=== PATIENT | male | born 1995 | race Caucasian/White ===

== ENCOUNTER → 2017-11-13 | Outpatient (CLI) | payer BC ==
--- NOTE | 2017-11-13 08:10 | US ---
EXAMINATION TYPE: US kidneys/renal and bladder DATE OF EXAM: 11/13/2017 COMPARISON: CT abdomen and pelvis October 26, 2017 and older study April 29, 2011 CLINICAL HISTORY: N28.1 Cyst of kidney, acquired. CT showed right kidney lesion EXAM MEASUREMENTS: Right Kidney: 11.1 x 4.1 x 4.3 cm Left Kidney: 10.1 x 4.2 x 4.3 cm Right Kidney: Anterior lower pole cortical lesion with vascular flow= 3.0 x 2.6 x 2.9 cm Left Kidney: No hydronephrosis or masses seen Bladder: wnl Bilateral Jets seen There is no evidence for hydronephrosis at this point in time. No nephrolithiasis is seen. Correspon ding to CT in the right kidney laterally mid pole level there is partially exophytic ball-shaped hypo echoic lesion that shows suspicious vascularity on ultrasound image 21. The urinary bladder is anecho ic. Bilateral ureteral jets are seen. IMPRESSION: There is 3.0 cm complex cystic lesion with vascularity, Bosniak type III or IV lesion. Surgical refer ral advised. Cannot exclude cystic neoplasm.
== END | disposition home or self-care (01) ==
LOC: RADUSWWP 07:20
PROVIDERS: ATTEND Family Medicine
DX: N28.1 Cyst of kidney, acquired (principal); N28.89 Other specified disorders of kidney and ureter
CPT/HCPCS: 76770

== ENCOUNTER → 2018-07-02 | Outpatient (CLI) | payer BC ==
[2018-07-02 11:51] LABS: Blood Urea Nitrogen 15 mg/dL (9-20)
--- NOTE | 2018-07-02 13:25 | XR ---
EXAMINATION TYPE: XR chest 2V DATE OF EXAM: 07/02/2018 COMPARISON: 11/15/2003 INDICATION: Kidney cancer TECHNIQUE: Frontal and lateral views of the chest are obtained. FINDINGS: The heart size is normal. The pulmonary vasculature is normal. The lungs are clear. No suspicious lung masses are evident. No abnormal osseous lesions. IMPRESSION: 1. No acute pulmonary process. 2. No suspicious changes for metastatic renal cancer.
--- NOTE | 2018-07-02 13:30 | CT ---
EXAMINATION TYPE: CT abdomen wo/w con DATE OF EXAM: 07/02/2018 COMPARISON: Prior CT 10/26/2017 HISTORY: Renal CA CT DLP: 496.2 mGycm Automated exposure control for dose reduction was used. TECHNIQUE: Helical acquisition of images was performed from the lung bases through the top of iliac crest to include entire abdomen. CONTRAST: Performed with Oral Contrast and without and with IV Contrast, patient injected with 100 mL of Isovue 300. FINDINGS: LUNG BASES: No significant abnormality is appreciated. LIVER/GB: No significant abnormality is appreciated. PANCREAS: No significant abnormality is seen. SPLEEN: No significant abnormality is seen. ADRENALS: No significant abnormality is seen. KIDNEYS: Interval surgery the lateral aspect of the right kidney, the previously identified mass is n o longer evident, some increased attenuation along the lateral renal cortex is likely postsurgical. T here is cortical irregularity but no significant residual abnormal enhancement to suggest residual tu mor along the right kidney.. BOWEL: No significant abnormality is seen. LYMPH NODES: No significant abnormality is appreciated. OSSEOUS STRUCTURES: No significant abnormality is seen. FREE AIR: No Free Air visible ASCITES: None visible. RETROPERITONEAL ADENOPATHY: No Retroperitoneal Adenopathy visible. IMPRESSION: POSTOP CHANGES RIGHT KIDNEY.
== END | disposition home or self-care (01) ==
LOC: RADCTMAIN 10:55
PROVIDERS: ATTEND Surgery
DX: C64.9 Malignant neoplasm of unspecified kidney, except renal pelvis (principal); Z98.890 Other specified postprocedural states
CPT/HCPCS: 82565; 84520; 71046; 74170; 36415; Q9967

== ENCOUNTER 2018-11-07 12:16 | Emergency (ER) | payer BC ==
[2018-11-07 12:23] VITALS: TEMP 98.1
[2018-11-07] MEDS ORDERED: FAMOTIDINE 20 MG/2 ML VIAL IV STA (12:28)
[2018-11-07] MEDS ORDERED: diphenhydrAMINE 50 MG/ML 1 ML VIAL IVP STA (12:28)
[2018-11-07] MEDS ORDERED: methylPREDNISolone SOD SUCCI 125 MG/2 ML VIAL IV STA (12:28)
--- NOTE | 2018-11-07 13:28 | ED ---
Allergic Reaction HPI - General Chief complaint: Allergic Reaction Stated complaint: med reaction-facial & throat swelling and hives Time Seen by Provider: 11/07/18 12:25 Source: patient, RN notes reviewed Mode of arrival: ambulatory Limitations: no limitations - History of Present Illness Initial Comments: This is a 23-year-old male with a history is known for penicillin ALLERGIES who states he started taking cephalexin earlier today about half hour prior to arrival he started developing a rash itchiness tightness in his throat similar when he had the past with penicillin he's never had a problem cephalexin in the past he denies any nausea vomiting he does not feel well. MD Complaint: allergic reaction - Related Data Home Medications Medication Instructions Recorded Confirmed Dm/Acetaminophen/Doxylamine [Vicks 30 ml PO Q4H PRN 11/07/18 11/07/18 Nyquil Cold-Flu Liquid] Phenylephrine/Dm/Acetaminop/GG 30 ml PO Q4H PRN 11/07/18 11/07/18 [Vicks Dayquil Severe Cold-Flu] Previous Rx's Medication Instructions Recorded Famotidine [Pepcid] 20 mg PO BID #10 tablet 11/07/18 predniSONE 20 mg PO BID #10 tab 11/07/18 Allergies Allergy/AdvReac Type Severity Reaction Status Date / Time cephalexin [From Keflex] Allergy Rash/Hives Verified 11/07/18 12:29 Penicillins Allergy Rash/Hives Verified 11/07/18 12:29 Review of Systems ROS Statement: Those systems with pertinent positive or pertinent negative responses have been documented in the HPI. ROS Other: All systems not noted in ROS Statement are negative. Past Medical History Past Medical History: Cancer Additional Past Medical History / Comment(s): Kidney CA right side History of Any Multi-Drug Resistant Organisms: None Reported Past Surgical History: Tonsillectomy Past Anesthesia/Blood Transfusion Reactions: No Reported Reaction Past Psychological History: No Psychological Hx Reported Smoking Status: Never smoker Past Alcohol Use History: Rare Past Drug Use History: None Reported General Exam - General Exam Comments Initial Comments: This a well-developed well-nourished awake alert oriented times 3 male Limitations: no limitations General appearance: alert, anxious Head exam: Present: atraumatic, normocephalic, normal inspection Eye exam: Present: normal appearance, PERRL, EOMI. Absent: scleral icterus, conjunctival injection, periorbital swelling ENT exam: Present: other (Mild posterior pharyngeal hyperemia) Neck exam: Present: normal inspection, full ROM, other (No stridor JVD or bruits). Absent: tenderness, meningismus, lymphadenopathy Respiratory exam: Present: normal lung sounds bilaterally. Absent: respiratory distress, wheezes, rales, rhonchi, stridor Cardiovascular Exam: Present: normal rhythm, tachycardia, normal heart sounds. Absent: systolic murmur, diastolic murmur, rubs, gallop, clicks GI/Abdominal exam: Present: soft, normal bowel sounds. Absent: distended, tenderness, guarding, rebound, rigid Extremities exam: Present: normal inspection, full ROM, normal capillary refill. Absent: tenderness, pedal edema, joint swelling, calf tenderness Back exam: Present: normal inspection Neurological exam: Present: alert, oriented X3, CN II-XII intact Psychiatric exam: Present: normal affect, normal mood Skin exam: Present: warm, dry, intact, normal color. Absent: rash Course Vital Signs 11/07/18 12:20 Temperature 98.1 F Pulse Rate 122 H Respiratory 18 Rate Blood Pressure 138/77 O2 Sat by Pulse 96 Oximetry - Reevaluation(s) Reevaluation #1: 11/07/18 13:28 Reevaluation patient finds that he is feeling much improved at this time. Medical Decision Making - Medical Decision Making The patient is feeling improved he does present with symptoms consistent with ALLERGIC reaction to cephalexin he'll be discharged home on a short course of steroids as well as instructions for [id number] H1 and H2 blockers. Disposition Clinical Impression: Allergic reaction, Adverse reaction to drug Disposition: HOME SELF-CARE Condition: Good Instructions (If sedation given, give patient instructions): General Allergic Reaction (ED) Additional Instructions: Avoid the use of cephalexin in addition to the urine noted ALLERGY to penicillin. Also [id number]-[id number] Benadryl 25 mg every 6 hours as needed, cool compresses to any affected area, avoid heat/hot environments for the next 3-5 days. Prescriptions: Famotidine [Pepcid] 20 mg PO BID #10 tablet predniSONE 20 mg PO BID #10 tab Is patient prescribed a controlled substance at d/c from ED?: No Referrals: Kenny Winn MD [Primary Care Provider] - 1-2 days
--- NOTE | 2018-11-07 13:35 | ED ---
Medical Decision Making - Medical Decision Making The patient will be placed on azithromycin for his sinus infection who is being treated for Disposition Clinical Impression: Allergic reaction, Adverse reaction to drug Disposition: HOME SELF-CARE Condition: Good Instructions (If sedation given, give patient instructions): General Allergic Reaction (ED) Additional Instructions: Avoid the use of cephalexin in addition to the urine noted ALLERGY to penicillin. Also xrsb-dni-yixysbo Benadryl 25 mg every 6 hours as needed, cool compresses to any affected area, avoid heat/hot environments for the next 3-5 days. Prescriptions: Famotidine [Pepcid] 20 mg PO BID #10 tablet predniSONE 20 mg PO BID #10 tab Azithromycin [Zithromax Z-pack] 250 mg PO DIRECTED #6 tab Is patient prescribed a controlled substance at d/c from ED?: No Referrals: Kenny Winn MD [Primary Care Provider] - 1-2 days
[2018-11-07 13:49] VITALS: BP 131/71; PULSE 80; RESP 16
== END 2018-11-07 13:51 | disposition home or self-care (01) ==
LOC: EC 12:16
DX: J39.2 Other diseases of pharynx (principal); T36.1X5A Adverse effect of cephalosporins and other beta-lactam antibiotics, initial encounter; J32.9 Chronic sinusitis, unspecified; R00.0 Tachycardia, unspecified; Z88.0 Allergy status to penicillin; Z88.1 Allergy status to other antibiotic agents; Z85.528 Personal history of other malignant neoplasm of kidney
CPT/HCPCS: 99282; 96374; 96375 ×2; J1200; J2930

== ENCOUNTER → 2019-07-19 | Outpatient (CLI) | payer BC ==
[2019-07-19 10:33] LABS: African American GFR (CKD) >90 (>60 ml/min/1.73 sqM); Blood Urea Nitrogen 18 mg/dL (9-20); Non-African American GFR(CKD) >90 (>60 ml/min/1.73 sqM)
--- NOTE | 2019-07-19 11:51 | CT ---
EXAMINATION TYPE: CT abdomen wo/w con DATE OF EXAM: 07/19/2019 COMPARISON: CT abdomen July 02, 2018 and older studies HISTORY: Benign neoplasm of right kidney CT DLP: 567.5 mGycm, Automated Exposure Control for Dose Reduction was Utilized. CONTRAST: CT scan of the abdomen is performed with oral and without and with IV Contrast, patient injected with 100 mL of Isovue 300. FINDINGS: LUNG BASES: No significant abnormality is appreciated. LIVER/GB: No significant abnormality is appreciated. PANCREAS: No significant abnormality is seen. SPLEEN: No significant abnormality is seen. ADRENALS: No significant abnormality is seen. KIDNEYS: Gross persistent cortical defect with adjacent curvilinear density consistent with posttreat ment change through the right kidney laterally midpole level from prior partial excision of complex c ystic lesion. There is symmetric corticomedullary uptake and excretion from both kidneys without new concerning solid or cystic renal mass or hydronephrosis seen bilaterally. BOWEL: No significant abnormality is seen. LYMPH NODES: No greater than 1cm abdominal lymph nodes are appreciated. OSSEOUS STRUCTURES: No significant abnormality is seen. OTHER: No significant additional abnormality is seen. IMPRESSION: Stable postsurgical changes right kidney. No new suspicious mass. No significant change f rom most recent CT.
== END | disposition home or self-care (01) ==
LOC: RADCTMAIN 09:56
PROVIDERS: ATTEND Surgery
DX: C64.1 Malignant neoplasm of right kidney, except renal pelvis (principal); Z98.890 Other specified postprocedural states
CPT/HCPCS: 74170; 82565; 84520

== ENCOUNTER 2019-09-26 | Observation (INO) | payer BC | END 2019-09-28 13:30 | disposition home or self-care (01) | PROVIDERS: ADMIT Hospitalist | CPT/HCPCS: 96361 ×2; 96376; 96372; 96374; 99285; 36415; 93005; 80053 ×2; 83690; 85025; 81003; 87324; 87045; 87046; 74018; G0378 ×3; J0500; J2405 ==

== ENCOUNTER → 2020-09-15 | Outpatient (CLI) | payer BC ==
[2020-09-15 09:32] LABS: Basophils # (A) 0.1 k/uL (0-0.2); Basophils % (A) 1 %; Eosinophils # (A) 0.4 k/uL (0-0.7); Eosinophils % (A) 5 %; HCT 49.9 % (39.0-53.0); Lymphocytes # (A) 1.9 k/uL (1.0-4.8); Lymphocytes % (A) 28 %; MCH 30.3 pg (25.0-35.0); MCV 89.2 fL (80.0-100.0); Mean Platelet Volume 7.4; Monocytes # (A) 0.4 k/uL (0-1.0); Monocytes % (A) 6 %; Neutrophils # (A) 3.9 k/uL (1.3-7.7); Neutrophils % (A) 58 %; Platelet Count 204 k/uL (150-450); RBC 5.59 m/uL (4.30-5.90); RDW 12.9 % (11.5-15.5); WBC 6.8 k/uL (3.8-10.6)
[2020-09-15 11:03] LABS: Erythrocyte Sedimentation Rate 1 mm/hr (0-15)
[2020-09-15 15:30] LABS: Hemoglobin A1C 4.8 % (4.0-6.0)
[2020-09-15 17:44] LABS: % Iron Saturation 44.16 (15.00-50.00); African American GFR (CKD) 87.9 (60.0-200.0); Albumin 4.4 g/dL (3.80-4.90); Albumin/Globulin Ratio 1.63 (1.60-3.17); Anion Gap 6.3 mmol/L (4.00-12.00); BUN/Creat Ratio 10.77 Ratio (12.00-20.00); Calcium 10.4 mg/dL (8.7-10.3); Carbon Dioxide 28.7 mmol/L (21.6-31.8); Chol/HDL Ratio 3.95; Globulin 2.7 g/dL (1.6-3.3); LDL Cholesterol,Calculated 108.2 mg/dL (0.0-131.0); Non-African American GFR(CKD) 75.8 (60.0-200.0); Potassium 3.9 mmol/L (3.5-5.5); Total Bilirubin 0.8 mg/dL (0.3-1.2); Total Protein 7.1 g/dL (6.2-8.2); VLDL Calculation 18.8 mg/dL (5.00-40.00)
[2020-09-15 17:53] LABS: Ferritin 91.2 ng/mL (22.0-322.0)
== END | disposition home or self-care (01) ==
LOC: LABMAIN 08:47
PROVIDERS: ATTEND Family Medicine
DX: Z00.00 Encounter for general adult medical examination without abnormal findings (principal); R53.83 Other fatigue
CPT/HCPCS: 36415; 80053; 80061; 82024; 82533; 82728; 83036; 83540; 83550; 84443; 85025; 85652

== ENCOUNTER → 2020-11-20 | Outpatient (CLI) | payer BC | LOC: CPPFTMAIN 13:12 | PROVIDERS: ATTEND Family Medicine | DX: J45.909 Unspecified asthma, uncomplicated (principal) | CPT/HCPCS: 94060; 94726; 94729 ==

== ENCOUNTER → 2021-03-29 | Outpatient (CLI) | payer BC ==
[2021-03-29 16:52] LABS: African American GFR (CKD) >90 (>60 ml/min/1.73 sqM); Blood Urea Nitrogen 24 mg/dL (9-20); Non-African American GFR(CKD) 82 (>60 ml/min/1.73 sqM)
--- NOTE | 2021-03-31 07:54 | CT ---
EXAMINATION TYPE: CT abdomen wo/w con DATE OF EXAM: 03/29/2021 COMPARISON: CT abdomen July 19, 2019 and older studies. HISTORY: f/u renal ca CT DLP: 1074 mGycm, Automated Exposure Control for Dose Reduction was Utilized. CONTRAST: CT scan of the abdomen is performed with oral and without and with IV Contrast, patient injected with 100 mL of Isovue 300. FINDINGS: LUNG BASES: No significant abnormality is appreciated. LIVER/GB: No significant abnormality is appreciated. PANCREAS: No significant abnormality is seen. SPLEEN: No significant abnormality is seen. ADRENALS: No significant abnormality is seen. KIDNEYS: Persistent cortical defect with adjacent curvilinear density consistent with posttreatment c hange in the right kidney laterally midpole level from prior partial excision of complex cystic lesio n. There is symmetric corticomedullary uptake and excretion from both kidneys without new concerning solid or cystic renal mass or hydronephrosis seen bilaterally. BOWEL: Normal-appearing appendix. Oral contrast does not reach colonic level. Low positioning of the splenic flexure similar to prior. LYMPH NODES: No new greater than 1cm abdominal lymph nodes are appreciated. OSSEOUS STRUCTURES: Mild to moderate Disc space narrowing lumbosacral junction. OTHER: No significant additional abnormality is seen. IMPRESSION: Stable postsurgical changes right kidney. No new suspicious mass. No significant change f rom most recent CT.
== END | disposition home or self-care (01) ==
LOC: RADCTMAIN 16:10
PROVIDERS: ATTEND Family Medicine
DX: Z08 Encounter for follow-up examination after completed treatment for malignant neoplasm (principal); Z85.528 Personal history of other malignant neoplasm of kidney
CPT/HCPCS: 82565; 84520; 74170; 36415; Q9967

== ENCOUNTER 2021-05-04 11:30 | Emergency (ER) | payer BC ==
[2021-05-04 11:47] VITALS: TEMP 97.7
--- NOTE | 2021-05-04 11:51 | ED ---
General Adult HPI - General Chief complaint: Abdominal Pain Stated complaint: ABD pain, possible appendicitis Time Seen by Provider: 05/04/21 11:50 Source: patient Mode of arrival: ambulatory Limitations: no limitations - History of Present Illness Initial comments: Patient presents to the ED with his for evaluation. Patient states that he has had constant and worsening right lower quadrant abdominal pain for the past 5 days or so. Patient states that his pain is worse with movement and better with rest. Patient also admits to having nausea and intermittent diarrhea. Patient states that he has a history of irritable bowel syndrome. Patient states that he was seen at the [facility] today, and he was instructed to come to the ED out of concern for possible appendicitis. Patient denies trauma or injury, fever or chills, headache, focal neuro deficit, chest pain or pressure, cough or cold symptoms, dizziness, vomiting, constipation, bloody or melanotic stool, back or flank pain, dysuria/hematuria/urinary frequency/urinary symptoms, or any other symptoms or complaints. Patient states that his pain is currently 7/10 in severity. Patient states that he has had prior right kidney surgery secondary to kidney cancer. - Related Data Home Medications Medication Instructions Recorded Confirmed Citalopram Hydrobromide [CeleXA] 10 mg PO HS 09/26/19 09/26/19 Previous Rx's Medication Instructions Recorded Dicyclomine [Bentyl] 20 mg PO QID #12 tablet 09/26/19 Ondansetron [Zofran ODT] 4 mg PO Q8HR PRN #10 tab 09/26/19 Ciprofloxacin HCl [Cipro] 500 mg PO BID #4 tab 09/28/19 metroNIDAZOLE [Flagyl] 500 mg PO TID #6 tab 09/28/19 Allergies Allergy/AdvReac Type Severity Reaction Status Date / Time cephalexin [From Keflex] Allergy Rash/Hives Verified 05/04/21 11:47 Penicillins Allergy Rash/Hives Verified 05/04/21 11:47 Review of Systems ROS Statement: Those systems with pertinent positive or pertinent negative responses have been documented in the HPI. ROS Other: All systems not noted in ROS Statement are negative. Past Medical History Past Medical History: Cancer Additional Past Medical History / Comment(s): Kidney CA right side History of Any Multi-Drug Resistant Organisms: None Reported Past Surgical History: Tonsillectomy Additional Past Surgical History / Comment(s): right kidney removed. Past Anesthesia/Blood Transfusion Reactions: No Reported Reaction Past Psychological History: No Psychological Hx Reported, Anxiety Smoking Status: Never smoker Past Alcohol Use History: Rare Past Drug Use History: None Reported - Past Family History Father Family Medical History: No Reported History Mother Family Medical History: No Reported History General Exam Limitations: no limitations General appearance: alert, in no apparent distress Head exam: Present: atraumatic, normocephalic Eye exam: Present: normal appearance, EOMI ENT exam: Present: mucous membranes moist Neck exam: Present: other (Trachea is in midline) Respiratory exam: Present: normal lung sounds bilaterally. Absent: respiratory distress, wheezes, rales, rhonchi, stridor Cardiovascular Exam: Present: regular rate, normal rhythm, normal heart sounds, other (Normal radial pulses bilaterally) GI/Abdominal exam: Present: soft, normal bowel sounds, other (Moderate right l ower quadrant abdominal tenderness). Absent: distended, guarding, rebound Extremities exam: Absent: tenderness, pedal edema, calf tenderness Back exam: Absent: CVA tenderness (R), CVA tenderness (L) Neurological exam: Present: alert, oriented X3. Absent: motor sensory deficit Psychiatric exam: Present: normal affect, normal mood Skin exam: Present: warm, dry, intact, normal color Course Vital Signs 05/04/21 05/04/21 11:45 12:43 Temperature 97.7 F Pulse Rate 85 89 Respiratory 18 16 Rate Blood Pressure 142/83 143/64 O2 Sat by Pulse 97 99 Oximetry - Reevaluation(s) Reevaluation #1: 05/04/21 15:02 Patient states that his pain has improved with ED treatment, and he denies development of any new symptoms while in the ED. Patient's abdomen remains soft and without any surgical signs on examination. Patient and are aware the patient's test results, and patient feels comfortable going home with his at this time. Patient was counseled about abdominal pain, and he was clearly explained return and follow-up instructions. Patient was instructed to have a low threshold for return to the emergency department should his symptoms worsen. Patient was also instructed to follow up closely with his primary care provider. Patient feels comfortable with this plan. Medical Decision Making - Medical Decision Making Patient has a soft and nonsurgical abdominal examination. Patient is afebrile and without leukocytosis. Patient's labs are fairly unremarkable. Patient's CT abdomen/pelvis with IV contrast was also unremarkable. I do not suspect an emergent medical or surgical condition at this time. Will discharge patient home with his at this time. - Lab Data Result diagrams: 05/04/21 12:07 05/04/21 12:07 Lab Results 05/04/21 05/04/21 05/04/21 Range/Units 12:07 12:07 12:07 WBC 8.5 (3.8-10.6) k/uL RBC 5.76 (4.30-5.90) m/uL Hgb 17.8 H (13.0-17.5) gm/dL Hct 51.9 (39.0-53.0) % MCV 90.0 (80.0-100.0) fL MCH 30.8 (25.0-35.0) pg MCHC 34.3 (31.0-37.0) g/dL RDW 12.9 (11.5-15.5) % Plt Count 213 (150-450) k/uL MPV 8.0 Neutrophils % 62 % Lymphocytes % 23 % Monocytes % 6 % Eosinophils % 5 % Basophils % 1 % Neutrophils # 5.3 (1.3-7.7) k/uL Lymphocytes # 2.0 (1.0-4.8) k/uL Monocytes # 0.5 (0-1.0) k/uL Eosinophils # 0.5 (0-0.7) k/uL Basophils # 0.1 (0-0.2) k/uL Sodium 140 (137-145) mmol/L Potassium 4.1 (3.5-5.1) mmol/L Chloride 106 (98-107) mmol/L Carbon Dioxide 25 (22-30) mmol/L Anion Gap 9 mmol/L BUN 14 (9-20) mg/dL Creatinine 1.07 (0.66-1.25) mg/dL Est GFR (CKD-EPI)AfAm >90 (>60 ml/min/1.73 sqM) Est GFR (CKD-EPI)NonAf >90 (>60 ml/min/1.73 sqM) Glucose 102 H (74-99) mg/dL Plasma Lactic Acid Imer (0.7-2.0) mmol/L Calcium 10.2 (8.4-10.2) mg/dL Total Bilirubin 0.6 (0.2-1.3) mg/dL AST 24 (17-59) U/L ALT 28 (4-49) U/L Alkaline Phosphatase 79 (38-126) U/L Total Protein 7.2 (6.3-8.2) g/dL Albumin 4.6 (3.5-5.0) g/dL Lipase 100 (23-300) U/L Urine Color Yellow Urine Appearance Clear (Clear) Urine pH 6.0 (5.0-8.0) Ur Specific [place] 1.018 (1.001-1.035) Urine Protein Negative (Negative) Urine Glucose (UA) Negative (Negative) Urine Ketones Negative (Negative) Urine Blood Negative (Negative) Urine Nitrite Negative (Negative) Urine Bilirubin Negative (Negative) Urine Urobilinogen <2.0 (<2.0) mg/dL Ur Leukocyte Esterase Negative (Negative) 05/04/21 Range/Units 12:07 WBC (3.8-10.6) k/uL RBC (4.30-5.90) m/uL Hgb (13.0-17.5) gm/dL Hct (39.0-53.0) % MCV (80.0-100.0) fL MCH (25.0-35.0) pg MCHC (31.0-37.0) g/dL RDW (11.5-15.5) % Plt Count (150-450) k/uL MPV Neutrophils % % Lymphocytes % % Monocytes % % Eosinophils % % Basophils % % Neutrophils # (1.3-7.7) k/uL Lymphocytes # (1.0-4.8) k/uL Monocytes # (0-1.0) k/uL Eosinophils # (0-0.7) k/uL Basophils # (0-0.2) k/uL Sodium (137-145) mmol/L Potassium (3.5-5.1) mmol/L Chloride (98-107) mmol/L Carbon Dioxide (22-30) mmol/L Anion Gap mmol/L BUN (9-20) mg/dL Creatinine (0.66-1.25) mg/dL Est GFR (CKD-EPI)AfAm (>60 ml/min/1.73 sqM) Est GFR (CKD-EPI)NonAf (>60 ml/min/1.73 sqM) Glucose (74-99) mg/dL Plasma Lactic Acid Imer 1.1 (0.7-2.0) mmol/L Calcium (8.4-10.2) mg/dL Total Bilirubin (0.2-1.3) mg/dL AST (17-59) U/L ALT (4-49) U/L Alkaline Phosphatase (38-126) U/L Total Protein (6.3-8.2) g/dL Albumin (3.5-5.0) g/dL Lipase (23-300) U/L Urine Color Urine Appearance (Clear) Urine pH (5.0-8.0) Ur Specific [place] (1.001-1.035) Urine Protein (Negative) Urine Glucose (UA) (Negative) Urine Ketones (Negative) Urine Blood (Negative) Urine Nitrite (Negative) Urine Bilirubin (Negative) Urine Urobilinogen (<2.0) mg/dL Ur Leukocyte Esterase (Negative) - Radiology Data Radiology results: report reviewed (CT abdomen/pelvis with IV contrast: No significant abnormality seen) Disposition Clinical Impression: Abdominal pain Disposition: HOME SELF-CARE Condition: Stable Instructions (If sedation given, give patient instructions): Abdominal Pain (ED) Additional Instructions: Return to the ER immediately should you develop new or worsening pain, a fever, vomiting, shortness of breath, feeling dizzy or faint, or new or worsening symptoms. Follow up closely with your primary care provider. Is patient prescribed a controlled substance at d/c from ED?: No Referrals: Kenny iWnn MD [Primary Care Provider] - 1-2 days Time of Disposition: 15:05
[2021-05-04] MEDS ORDERED: SODIUM CHLORIDE 0.9% 1,000 ML IV STA (11:58)
[2021-05-04] MEDS ORDERED: MORPHINE SULFATE 4 MG/ML SYRINGE IV STA (11:58)
[2021-05-04] MEDS ORDERED: ONDANSETRON 4 MG/2 ML VIAL IVP STA (11:58)
[2021-05-04 12:16] LABS: Basophils # (A) 0.1 k/uL (0-0.2); Basophils % (A) 1 %; Eosinophils # (A) 0.5 k/uL (0-0.7); Eosinophils % (A) 5 %; HCT 51.9 % (39.0-53.0); HGB 17.8 gm/dL (13.0-17.5); Lymphocytes % (A) 23 %; MCH 30.8 pg (25.0-35.0); MCHC 34.3 g/dL (31.0-37.0); Monocytes # (A) 0.5 k/uL (0-1.0); Monocytes % (A) 6 %; Neutrophils # (A) 5.3 k/uL (1.3-7.7); Neutrophils % (A) 62 %; Platelet Count 213 k/uL (150-450); RBC 5.76 m/uL (4.30-5.90); RDW 12.9 % (11.5-15.5); WBC 8.5 k/uL (3.8-10.6)
[2021-05-04 12:26] LABS: ALT 28 U/L (4-49); AST 24 U/L (17-59); African American GFR (CKD) >90 (>60 ml/min/1.73 sqM); Albumin 4.6 g/dL (3.5-5.0); Alkaline Phosphatase 79 U/L (38-126); Anion Gap 9 mmol/L; Blood Urea Nitrogen 14 mg/dL (9-20); Calcium 10.2 mg/dL (8.4-10.2); Carbon Dioxide 25 mmol/L (22-30); Chloride 106 mmol/L (98-107); Glucose 102 mg/dL (74-99); Lipase 100 U/L (23-300); Non-African American GFR(CKD) >90 (>60 ml/min/1.73 sqM); Potassium 4.1 mmol/L (3.5-5.1); Sodium 140 mmol/L (137-145); Total Bilirubin 0.6 mg/dL (0.2-1.3); Total Protein 7.2 g/dL (6.3-8.2)
[2021-05-04 12:27] LABS: Appearance,Urine Clear (Clear); Bilirubin,Urine Negative (Negative); Blood,Urine Negative (Negative); Color,Urine Yellow; Glucose,Urine (UA) Negative (Negative); Ketones,Urine Negative (Negative); Leukocyte Esterase,Urine Negative (Negative); Nitrite,Urine Negative (Negative); Protein,Urine Negative (Negative); Specific Gravity,Urine 1.018 (1.001-1.035); Urobilinogen,Urine <2.0 mg/dL (<2.0)
--- NOTE | 2021-05-04 13:31 | CT ---
EXAMINATION TYPE: CT abdomen pelvis w con DATE OF EXAM: 05/04/2021 COMPARISON: 03/29/2021 HISTORY: Right lower quadrant pain CT DLP: 1074 mGycm Automated exposure control for dose reduction was used. TECHNIQUE: Helical acquisition of images was performed from the lung bases through the pelvis. CONTRAST: 100 cc of nonionic IV contrast.. FINDINGS: The lung bases are clear. Gallbladder is normal and there is no gallstones, gallbladder distention, wall thickening or perichol ecystic fluid. There is no biliary ductal dilatation. There is no focal mass or organomegaly involving the liver, pancreas, spleen or adrenal glands. There is a small postsurgical defect in the right renal cortex which was seen previously otherwise th ere is no renal mass or hydronephrosis. There is no retroperitoneal adenopathy or hemorrhage in the caliber of the abdominal aorta is normal. The bowel loops are normal in caliber and there is no evidence of obstruction. There is no free intra peritoneal air or fluid. No inflammatory changes are identified in the mesentery. There is no pelvic mass, free fluid, abscess or adenopathy. The osseous structures and soft tissues are unremarkable. IMPRESSION: No significant abnormality seen.
[2021-05-04 15:17] VITALS: BP 134/83; PULSE 86; RESP 18
== END 2021-05-04 15:17 | disposition home or self-care (01) ==
LOC: EC 11:30
DX: R10.31 Right lower quadrant pain (principal); Z79.899 Other long term (current) drug therapy; Z88.0 Allergy status to penicillin; Z88.1 Allergy status to other antibiotic agents; Z85.528 Personal history of other malignant neoplasm of kidney
CPT/HCPCS: 36415; 80053; 83605; 83690; 85025; 81003; 74177; 99284; 96374; 96375; 96361; J2270; J2405; Q9967

== ENCOUNTER 2022-02-11 20:08 | Emergency (ER) | payer BC, OTHER ==
[2022-02-11 20:30] VITALS: BP 136/85; PULSE 111; RESP 18; TEMP 98.4
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
[2022-02-11] MEDS ORDERED: IBUPROFEN 600 MG STARTER PACK 4 TAB BTL PO STA (21:38)
[2022-02-11] MEDS ORDERED: CYCLOBENZAPRINE 10MG STARTER 3 TAB BTL PO STA (21:38)
[2022-02-11] MEDS ORDERED: ACETAMINOPHEN TAB 500 MG TAB PO STA (21:39)
== END 2022-02-11 21:59 | disposition home or self-care (01) ==
LOC: EC 20:08
DX: S16.1XXA Strain of muscle, fascia and tendon at neck level, initial encounter (principal); S09.90XA Unspecified injury of head, initial encounter; R07.89 Other chest pain; Z88.0 Allergy status to penicillin; Z88.1 Allergy status to other antibiotic agents; V49.49XA Driver injured in collision with other motor vehicles in traffic accident, initial encounter
CPT/HCPCS: 70450; 71046; 72125; 99284

== ENCOUNTER 2023-08-05 23:58 | Emergency (ER) | payer OTHER ==
[2023-08-06 00:25] VITALS: BP 121/79; PULSE 87; RESP 20; TEMP 97.9
--- NOTE | 2023-08-06 01:44 | ED ---
General Adult HPI - General Chief complaint: Recheck/Abnormal Lab/Rx Stated complaint: Medication Refill Time Seen by Provider: 08/06/23 01:42 Source: patient, family Mode of arrival: ambulatory Limitations: no limitations - History of Present Illness Initial comments: 28-year-old male presenting to the ED with a chief complaint of medication refill. Patient states that he went to the [facility] today to prescribe his regular prescribed meds however states that the pharmacy did not have these medications in stock. Therefore, was advised to present to the ED for further evaluation. Chest pain shortness of breath bodily pain. No other complaints. - Related Data Home Medications Medication Instructions Recorded Confirmed Albuterol Sulfate [Albuterol 1 - 2 puff PO RT-Q4H PRN 09/30/22 09/30/22 Sulfate Hfa] Citalopram Hydrobromide [CeleXA] 20 mg PO DAILY 09/30/22 09/30/22 Omeprazole [PriLOSEC] 40 mg PO DAILY 09/30/22 09/30/22 Umeclidinium Brm/Vilanterol Tr 1 puff INHALATION RT-DAILY 09/30/22 09/30/22 [Anoro Ellipta 62.5-25 Mcg INH] hydrOXYzine pamoate [hydrOXYzine 25 - 50 mg PO HS 09/30/22 09/30/22 PAMOATE] Previous Rx's Medication Instructions Recorded Venlafaxine HCl [Effexor XR] 150 mg PO DAILY #10 tab 08/06/23 Allergies Allergy/AdvReac Type Severity Reaction Status Date / Time cephalexin [From Keflex] Allergy Rash/Hives Verified 08/06/23 00:22 Penicillins Allergy Rash/Hives Verified 08/06/23 00:22 Review of Systems ROS Statement: Those systems with pertinent positive or pertinent negative responses have been documented in the HPI. ROS Other: All systems not noted in ROS Statement are negative. Past Medical History Past Medical History: Cancer Additional Past Medical History / Comment(s): Kidney CA right side History of Any Multi-Drug Resistant Organisms: None Reported Past Surgical History: Tonsillectomy Additional Past Surgical History / Comment(s): right kidney removed. Past Anesthesia/Blood Transfusion Reactions: No Reported Reaction Past Psychological History: No Psychological Hx Reported, Anxiety Smoking Status: Never smoker Past Alcohol Use History: Heavy Past Drug Use History: Marijuana - Past Family History Father Family Medical History: No Reported History Mother Family Medical History: No Reported History General Exam Limitations: no limitations General appearance: alert, in no apparent distress Eye exam: Present: normal appearance Neck exam: Present: normal inspection Respiratory exam: Present: normal lung sounds bilaterally Cardiovascular Exam: Present: regular rate, normal rhythm GI/Abdominal exam: Present: soft Neurological exam: Present: alert, oriented X3 Skin exam: Present: warm, dry Course Vital Signs 08/06/23 00:15 Temperature 97.9 F Pulse Rate 87 Respiratory 20 Rate Blood Pressure 121/79 O2 Sat by Pulse 95 Oximetry Medical Decision Making - Medical Decision Making Was pt. sent in by a medical professional or institution (, MIRELA, GEODETIC SURVEY DIRECTOR, urgent care, hospital, or correction...) When possible be specific @ -No Did you speak to anyone other than the patient for history (EMS, parent, family, police, friend...)? What history was obtained from this source @ -No Did you review nursing and triage notes (agree or disagree)? Why? @ -I reviewed and agree with nursing and triage notes Were old charts reviewed (outside hosp., previous admission, EMS record, old EKG, old radiological studies, urgent care reports/EKG's, correction records)? Report findings @ -No old charts were reviewed Differential Diagnosis (chest pain, altered mental status, abdominal pain women, abdominal pain men, vaginal bleeding, weakness, fever, dyspnea, syncope, headache, dizziness, GI bleed, back pain, seizure, CVA, palpatations, mental h ealth, musculoskeletal)? @ -not applicable EKG interpreted by me (3pts min.). @ -None X-rays interpreted by me (1pt min.). @ -None done CT interpreted by me (1pt min.). @ -None done U/S interpreted by me (1pt. min.). @ -None done What testing was considered but not performed or refused? (CT, X-rays, U/S, labs)? Why? @ -None What meds were considered but not given or refused? Why? @ -None Did you discuss the management of the patient with other professionals (professionals i.e. MIRELA Jarrett, GEODETIC SURVEY DIRECTOR, lab, RT, psych nurse, health and social care teacher, scientist/engineer, teacher, commanding officer traffic division, test case developer)? Give summary @ -No Was smoking cessation discussed for >3mins.? @ -No Was critical care preformed (if so, how long)? @ -No Were there social determinants of health that impacted care today? How? (Homelessness, low income, unemployed, alcoholism, drug addiction, transportation, low edu. Level, literacy, decrease access to med. care, longterm, rehab)? @ -No Was there de-escalation of care discussed even if they declined (Discuss DNR or withdrawal of care, Hospice)? DNR status @ -No What co-morbidities impacted this encounter? (DM, HTN, Smoking, COPD, CAD, Cancer, CVA, ARF, Chemo, Hep., AIDS, mental health diagnosis, sleep apnea, morbid obesity)? @ -None Was patient admitted / discharged? Hospital course, mention meds given and route, prescriptions, significant lab abnormalities, going to OR and other pertinent info. @ -Discharge 28-year-old male presenting to the ED for medication refill. Was provided short refill for venlafaxine an inhaler. Patient otherwise has no complaints at this time. Discharged home in stable condition advised follow-up with his PCP. Undiagnosed new problem with uncertain prognosis? @ -No Drug Therapy requiring intensive monitoring for toxicity (Heparin, Nitro, Insulin, Cardizem)? @ -No Were any procedures done? @ -No Diagnosis/symptom? @ -Medication refill Acute, or Chronic, or Acute on Chronic? @ -Acute Uncomplicated (without systemic symptoms) or Complicated (systemic symptoms)? @ -Uncomplicated Side effects of treatment? @ -No Exacerbation, Progression, or Severe Exacerbation? @ -No Poses a threat to life or bodily function? How? (Chest pain, [place], [place], pneumonia, PE, COPD, DKA, ARF, appy, cholecystitis, CVA, Diverticulitis, Homicidal, Suicidal, threat to staff... and all critical care pts) @ -No Disposition Clinical Impression: Medication refill Disposition: HOME SELF-CARE Condition: Good Prescriptions: Venlafaxine HCl [Effexor XR] 150 mg PO DAILY #10 tab Is patient prescribed a controlled substance at d/c from ED?: No Referrals: Kenny Winn MD [Primary Care Provider] - 1-2 days Time of Disposition: 01:47
[2023-08-06] MEDS ORDERED: VENLAFAXINE HCL ER 150 MG CAP PO STA ×2 (01:48)
[2023-08-06] MEDS ORDERED: ALBUTEROL HFA INHALER INHALATION STA (01:49)
== END 2023-08-06 01:58 | disposition home or self-care (01) ==
LOC: EC 23:58
DX: Z76.0 Encounter for issue of repeat prescription (principal); F12.90 Cannabis use, unspecified, uncomplicated; Z88.0 Allergy status to penicillin; Z88.8 Allergy status to other drugs, medicaments and biological substances
CPT/HCPCS: 99283

== ENCOUNTER 2023-10-03 11:04 | Emergency (ER) | payer OTHER ==
[2023-10-03] MEDS: ASPIRIN 81 MG PO STA (11:13)
--- NOTE | 2023-10-03 11:14 | ED ---
General Adult HPI - General Chief complaint: Chest Pain Stated complaint: chest pain Time Seen by Provider: 10/03/23 11:05 Source: patient, RN notes reviewed, old records reviewed Mode of arrival: ambulatory Limitations: no limitations - History of Present Illness Initial comments: This is a 28-year-old male who presents to the emergency department complaining of chest pain and shortness of breath. 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 He stated initially his heart rate was between 160 and 170. Patient states about a week ago he also experienced some chest pain and passed out while going through some drills they brought him into the emergency department he was admitted he had a cardiac catheterization and he was told that his heart vessels were clear. - Related Data Home Medications Medication Instructions Recorded Confirmed Albuterol Sulfate [Albuterol 1 puff PO RT-Q6H PRN 09/30/22 09/18/23 Sulfate Hfa] hydrOXYzine pamoate 25 - 50 mg PO HS 09/30/22 09/18/23 Montelukast [Singulair] 10 mg PO HS 09/18/23 09/18/23 Venlafaxine HCl ER [Effexor XR] 225 mg PO HS 09/18/23 09/18/23 traZODone HCL [Desyrel] 100 mg PO HS 09/18/23 09/18/23 Previous Rx's Medication Instructions Recorded Aspirin 81 mg PO DAILY 30 Days #30 tab 09/21/23 Atorvastatin [Lipitor] 40 mg PO DAILY 30 Days #30 tab 09/21/23 Nitroglycerin Sl Tabs [Nitrostat] 0.4 mg SUBLINGUAL Q5M PRN #30 tab 09/21/23 Allergies Allergy/AdvReac Type Severity Reaction Status Date / Time cephalexin [From Keflex] Allergy Anaphylaxis Verified 10/03/23 11:11 Penicillins Allergy Anaphylaxis Verified 10/03/23 11:11 Review of Systems ROS Statement: Those systems with pertinent positive or pertinent negative responses have been documented in the HPI. ROS Other: All systems not noted in ROS Statement are negative. Past Medical History Past Medical History: Cancer, Myocardial Infarction ([place]) Additional Past Medical History / Comment(s): Kidney CA right side History of Any Multi-Drug Resistant Organisms: None Reported Past Surgical History: Tonsillectomy Additional Past Surgical History / Comment(s): right kidney removed. Past Anesthesia/Blood Transfusion Reactions: No Reported Reaction Past Psychological History: No Psychological Hx Reported, Anxiety Smoking Status: Never smoker Past Alcohol Use History: Occasional Past Drug Use History: None Reported - Past Family History Father Family Medical History: No Reported History Mother Family Medical History: No Reported History General Exam - General Exam Comments Initial Comments: GENERAL: Patient is well-developed and well-nourished. Patient is nontoxic and well- hydrated and is in mild distress. ENT: Neck is soft and supple. No significant lymphadenopathy is noted. Oropharynx is clear. Moist mucous membranes. Neck has full range of motion without eliciting any pain. EYES: The sclera were anicteric and conjunctiva were pink and moist. Extraocular movements were intact and pupils were equal round and reactive to light. Eyelids were unremarkable. PULMONARY: Unlabored respirations. Good breath sounds bilaterally. No audible rales rhonchi or wheezing was noted. CARDIOVASCULAR: There is a regular rate and rhythm without any murmurs gallops or rubs. ABDOMEN: Soft and nontender with normal bowel sounds. SKIN: Skin is clear with no lesions or rashes and otherwise unremarkable. NEUROLOGIC: Patient is alert and oriented x3. Cranial nerves II through XII are grossly intact. Motor and sensory are also intact. Normal speech, volume and content. Symmetrical smile. MUSCULOSKELETAL: Normal extremities with adequate strength and full range of motion. LYMPHATICS: No significant lymphadenopathy is noted PSYCHIATRIC: Normal psychiatric evaluation. Limitations: no limitations Course Vital Signs 10/03/23 10/03/23 10/03/23 11:05 12:37 13:16 Temperature 100.1 F H 98.0 F 98.2 F Pulse Rate 124 H 103 H 103 H Respiratory 18 18 20 Rate Blood Pressure 121/71 95/66 104/67 O2 Sat by Pulse 98 94 L 95 Oximetry Medical Decision Making - Medical Decision Making EKG is interpreted by myself but EKG shows a sinus tachycardia at 119 bpm TN interval 170 QRS is 93 QT interval 318 QTc is 388. Patient's EKG shows no ST segment ovation or depression. Was pt. sent in by a medical professional or institution (, PA, VENUE COORDINATOR, urgent care, hospital, or custodial...) When possible be specific @ -No Did you speak to anyone other than the patient for history (EMS, parent, family, police, friend...)? What history was obtained from this source @ -No Did you review nursing and triage notes (agree or disagree)? Why? @ -I reviewed and agree with nursing and triage notes Were old charts reviewed (outside hosp., previous admission, EMS record, old EKG, old radiological studies, urgent care reports/EKG's, custodial records)? Report findings @ -I reviewed prior charts and prior lab work on this patient Differential Diagnosis (chest pain, altered mental status, abdominal pain women, abdominal pain men, vaginal bleeding, weakness, fever, dyspnea, syncope, headache, dizziness, GI bleed, back pain, seizure, CVA, palpatations, mental health, musculoskeletal)? @ -Differential Chest Pain: Stable Angina, Unstable Angina, STEMI, NSTEMI Aortic Dissection, Pneumothorax, Musculoskeletal, Esophageal Spasm GERD, Cholecystitis, Pancreatitis, Zoster, this is not meant to be an all-inclusive list. EKG interpreted by me (3pts min.). @ -As above X-rays interpreted by me (1pt min.). @ -Chest x-ray shows no acute abnormality CT interpreted by me (1pt min.). @ -None done U/S interpreted by me (1pt. min.). @ -None done What testing was considered but not performed or refused? (CT, X-rays, U/S, labs)? Why? @ -None What meds were considered but not given or refused? Why? @ -None Did you discuss the management of the patient with other professionals (professionals i.e. , PA, VENUE COORDINATOR, lab, RT, psych nurse, dialysis social worker, manager personnel selection, teacher, rating officer, window caser)? Give summary @ -No Was smoking cessation discussed for >3mins.? @ -No Was critical care preformed (if so, how long)? @ -No Were there social determinants of health that impacted care today? How? (Homelessness, low income, unemployed, alcoholism, drug addiction, transportation, low edu. Level, literacy, decrease access to med. care, senior care, rehab)? @ -No Was there de-escalation of care discussed even if they declined (Discuss DNR or withdrawal of care, Hospice)? DNR status @ -No What co-morbidities impacted this encounter? (DM, HTN, Smoking, COPD, CAD, Cancer, CVA, ARF, Chemo, Hep., AIDS, mental health diagnosis, sleep apnea, morbid obesity)? @ -None Was patient admitted / discharged? Hospital course, mention meds given and route, prescriptions, significant lab abnormalities, going to OR and other pertinent info. @ -I reviewed patient's prior catheterization it was normal. I reviewed patient's echo and that was normal Undiagnosed new problem with uncertain prognosis? @ -No Drug Therapy requiring intensive monitoring for toxicity (Heparin, Nitro, Insulin, Cardizem)? @ -No Were any procedures done? @ -No Diagnosis/symptom? @ -Atypical chest pain Acute, or Chronic, or Acute on Chronic? @ -Acute Uncomplicated (without systemic symptoms) or Complicated (systemic symptoms)? @ -Complicated Side effects of treatment? @ -No Exacerbation, Progression, or Severe Exacerbation? @ -No Poses a threat to life or bodily function? How? (Chest pain, [place], [place], pneumonia, PE, COPD, DKA, ARF, appy, cholecystitis, CVA, Diverticulitis, Homicidal, Geraldine cidal, threat to staff... and all critical care pts) @ -No After patient was dispositioned they were going to discharge him and he started having some further chest pain so repeat EKG was done. EKG was interpreted by myself but EKG shows a sinus rhythm at 84 bpm parables 178 QRS is 94 QT interval 348 QTc is 389. Patient's EKG shows no ST segment ovation or depression Patient got a GI cocktail after few minutes patient was reevaluated feeling much better. I did add a D-dimer and that was also negative this time patient wanted to be discharged home to follow-up with cardiology. - Lab Data Result diagrams: 10/03/23 11:12 10/03/23 11:12 Lab Results 10/03/23 10/03/23 10/03/23 Range/Units 11:12 11:12 11:12 WBC 8.0 (3.8-10.6) k/uL RBC 5.58 (4.30-5.90) m/uL Hgb 16.3 (13.0-17.5) gm/dL Hct 47.7 (39.0-53.0) % MCV 85.5 (80.0-100.0) fL MCH 29.2 (25.0-35.0) pg MCHC 34.2 (31.0-37.0) g/dL RDW 12.8 (11.5-15.5) % Plt Count 236 (150-450) k/uL MPV 7.9 Neutrophils % 58 % Lymphocytes % 30 % Monocytes % 5 % Eosinophils % 4 % Basophils % 1 % Neutrophils # 4.7 (1.3-7.7) k/uL Lymphocytes # 2.4 (1.0-4.8) k/uL Monocytes # 0.4 (0-1.0) k/uL Eosinophils # 0.4 (0-0.7) k/uL Basophils # 0.1 (0-0.2) k/uL PT 11.5 (10.0-12.5) sec INR 1.1 (<1.2) APTT 25.6 (22.0-30.0) sec D-Dimer (<0.60) mg/L FEU Sodium (137-145) mmol/L Potassium (3.5-5.1) mmol/L Chloride (98-107) mmol/L Carbon Dioxide (22-30) mmol/L Anion Gap mmol/L BUN (9-20) mg/dL Creatinine (0.66-1.25) mg/dL Est GFR (CKD-EPI)AfAm (>60 ml/min/1.73 sqM) Est GFR (CKD-EPI)NonAf (>60 ml/min/1.73 sqM) Glucose (74-99) mg/dL Calcium (8.4-10.2) mg/dL Magnesium (1.6-2.3) mg/dL Total Bilirubin (0.2-1.3) mg/dL AST (17-59) U/L ALT (4-49) U/L Alkaline Phosphatase (38-126) U/L Troponin I (0.000-0.034) ng/mL Total Protein (6.3-8.2) g/dL Albumin (3.5-5.0) g/dL Influenza Type A (PCR) Not Detected (Not Detectd) Influenza Type B (PCR) Not Detected (Not Detectd) RSV (PCR) Not Detected (Not Detectd) SARS-CoV-2 (PCR) Not Detected (Not Detectd) 10/03/23 10/03/23 10/03/23 Range/Units 11:12 11:12 14:06 WBC (3.8-10.6) k/uL RBC (4.30-5.90) m/uL Hgb (13.0-17.5) gm/dL Hct (39.0-53.0) % MCV (80.0-100.0) fL MCH (25.0-35.0) pg MCHC (31.0-37.0) g/dL RDW (11.5-15.5) % Plt Count (150-450) k/uL MPV Neutrophils % % Lymphocytes % % Monocytes % % Eosinophils % % Basophils % % Neutrophils # (1.3-7.7) k/uL Lymphocytes # (1.0-4.8) k/uL Monocytes # (0-1.0) k/uL Eosinophils # (0-0.7) k/uL Basophils # (0-0.2) k/uL PT (10.0-12.5) sec INR (<1.2) APTT (22.0-30.0) sec D-Dimer 0.22 (<0.60) mg/L FEU Sodium 138 (137-145) mmol/L Potassium 4.2 (3.5-5.1) mmol/L Chloride 108 H (98-107) mmol/L Carbon Dioxide 18 L (22-30) mmol/L Anion Gap 12 mmol/L BUN 17 (9-20) mg/dL Creatinine 1.26 H (0.66-1.25) mg/dL Est GFR (CKD-EPI)AfAm 89 (>60 ml/min/1.73 sqM) Est GFR (CKD-EPI)NonAf 77 (>60 ml/min/1.73 sqM) Glucose 122 H (74-99) mg/dL Calcium 9.7 (8.4-10.2) mg/dL Magnesium 1.6 (1.6-2.3) mg/dL Total Bilirubin 0.5 (0.2-1.3) mg/dL AST 28 (17-59) U/L ALT 28 (4-49) U/L Alkaline Phosphatase 78 (38-126) U/L Troponin I <0.012 (0.000-0.034) ng/mL Total Protein 7.0 (6.3-8.2) g/dL Albumin 4.5 (3.5-5.0) g/dL Influenza Type A (PCR) (Not Detectd) Influenza Type B (PCR) (Not Detectd) RSV (PCR) (Not Detectd) SARS-CoV-2 (PCR) (Not Detectd) Disposition Clinical Impression: Atypical chest pain Disposition: HOME SELF-CARE Condition: Good Instructions (If sedation given, give patient instructions): Chest Pain (ED) Additional Instructions: Patient should follow-up with cardiology to be cleared to go back to any rigorous activity. Is patient prescribed a controlled substance at d/c from ED?: No Referrals: None,Stated [Primary Care Provider] - 1-2 days Time of Disposition: 13:16
[2023-10-03] MEDS: NITROGLYCERIN OINT 1 INCH/GM PACKET TOPICAL STA (11:15)
[2023-10-03] MEDS: ACETAMINOPHEN TAB 500 MG TAB PO STA (11:15)
[2023-10-03] MEDS: IBUPROFEN 600 MG TAB PO STA (11:15)
[2023-10-03 11:45] LABS: ALT 28 U/L (4-49); AST 28 U/L (17-59); African American GFR (CKD) 89 (>60 ml/min/1.73 sqM); Albumin 4.5 g/dL (3.5-5.0); Alkaline Phosphatase 78 U/L (38-126); Anion Gap 12 mmol/L; Blood Urea Nitrogen 17 mg/dL (9-20); Calcium 9.7 mg/dL (8.4-10.2); Carbon Dioxide 18 mmol/L (22-30); Chloride 108 mmol/L (98-107); Glucose 122 mg/dL (74-99); Magnesium 1.6 mg/dL (1.6-2.3); Non-African American GFR(CKD) 77 (>60 ml/min/1.73 sqM); Potassium 4.2 mmol/L (3.5-5.1); Sodium 138 mmol/L (137-145); Total Bilirubin 0.5 mg/dL (0.2-1.3)
[2023-10-03 11:48] LABS: INR 1.1 (<1.2); Partial Thromboplastin Time 25.6 sec (22.0-30.0); Prothrombin Time 11.5 sec (10.0-12.5)
--- NOTE | 2023-10-03 11:51 | XR ---
EXAMINATION TYPE: XR chest 2V DATE OF EXAM: 10/03/2023 11:26 AM CLINICAL INDICATION:Male, 28 years old with history of Chest Pain; [facility] COMPARISON: None TECHNIQUE: XR chest 2V Frontal and lateral views of the chest. FINDINGS: Lungs/Pleura: There is no evidence of pleural effusion, focal consolidation, or pneumothorax. Pulmonary vascularity: Unremarkable. Heart/mediastinum: Cardiomediastinal silhouette is unremarkable. Musculoskeletal: No acute osseous pathology. IMPRESSION: No acute cardiopulmonary disease/process.
[2023-10-03 11:58] LABS: Basophils # (A) 0.1 k/uL (0-0.2); Basophils % (A) 1 %; Eosinophils # (A) 0.4 k/uL (0-0.7); Eosinophils % (A) 4 %; HCT 47.7 % (39.0-53.0); HGB 16.3 gm/dL (13.0-17.5); Lymphocytes # (A) 2.4 k/uL (1.0-4.8); Lymphocytes % (A) 30 %; MCH 29.2 pg (25.0-35.0); MCHC 34.2 g/dL (31.0-37.0); MCV 85.5 fL (80.0-100.0); Mean Platelet Volume 7.9; Monocytes # (A) 0.4 k/uL (0-1.0); Monocytes % (A) 5 %; Neutrophils # (A) 4.7 k/uL (1.3-7.7); Neutrophils % (A) 58 %; Platelet Count 236 k/uL (150-450); RBC 5.58 m/uL (4.30-5.90); RDW 12.8 % (11.5-15.5)
[2023-10-03] MEDS: MAG HYDROX/AL HYDROX/SIMETH 30 ML, HYOSCYAMINE ELIXIR 10 ML, LIDOCAINE VISCOUS 2% 10 ML PO STA (14:16)
[2023-10-03 14:44] VITALS: BP 114/71; PULSE 82; RESP 18; TEMP 98.4
== END 2023-10-03 14:26 | disposition home or self-care (01) ==
LOC: EC 11:04
DX: R07.89 Other chest pain (principal); R00.0 Tachycardia, unspecified; I25.2 Old myocardial infarction; F41.9 Anxiety disorder, unspecified; Z20.822 Contact with and (suspected) exposure to COVID-19; Z79.899 Other long term (current) drug therapy; Z88.0 Allergy status to penicillin; Z88.1 Allergy status to other antibiotic agents
CPT/HCPCS: 36415; 71046; 80053; 83735; 84484; 85025; 85379; 85610; 85730; 87636; 93005; 99285

== ENCOUNTER 2023-12-22 17:47 | Emergency (ER) | payer OTHER ==
--- NOTE | 2023-12-22 18:19 | ED ---
General Adult HPI - General Chief complaint: Chest Pain Stated complaint: Near Syncope Time Seen by Provider: 12/22/23 18:01 Source: patient, EMS Mode of arrival: EMS - History of Present Illness Initial comments: This patient is a 28-year-old man who presents to have a evaluation for syncopal episode. The patient states that he had been working outside most of the day and then did feel lightheaded. He states that he woke up lying on the dirt. The patient was concerned because September 17 of this year he was seen here and was told that he had a heart attack. The patient states that today there was funny feeling in his chest but no dyspnea. He was little sweaty but he had been working outside. No nausea or vomiting. -: minutes(s) Severity scale (1-10): 0 Consistency: now resolved Improves with: none Worsens with: none Associated Symptoms: syncope Treatments Prior to Arrival: none - Related Data Home Medications Medication Instructions Recorded Confirmed Albuterol Sulfate [Albuterol 1 puff INHALATION RT-Q6H PRN 09/30/22 12/30/23 Sulfate Hfa] Montelukast [Singulair] 10 mg PO HS 09/18/23 12/31/23 Venlafaxine HCl ER [Effexor XR] 150 mg PO DAILY 09/18/23 12/31/23 traZODone HCL [Desyrel] 200 mg PO HS 09/18/23 12/31/23 Prazosin [Minipress] 1 mg PO HS 12/22/23 12/31/23 Fexofenadine HCl [Joselyn Allergy] 180 mg PO DAILY 12/30/23 12/31/23 Omeprazole 20 mg PO DAILY 12/30/23 12/31/23 Trellegy (Unk) 1 dose INHALATION DIRECTED 12/30/23 12/31/23 Previous Rx's Medication Instructions Recorded Nitroglycerin Sl Tabs [Nitrostat] 0.4 mg SUBLINGUAL Q5M PRN #30 tab 09/21/23 Magnesium Oxide [Mag-Ox] 400 mg PO DAILY #14 tablet 12/22/23 Allergies Allergy/AdvReac Type Severity Reaction Status Date / Time cephalexin [From Keflex] Allergy Anaphylaxis Verified 12/22/23 19:35 Penicillins Allergy Anaphylaxis Verified 12/22/23 19:35 Review of Systems ROS Statement: Those systems with pertinent positive or pertinent negative responses have been documented in the HPI. ROS Other: All systems not noted in ROS Statement are negative. Constitutional: Reports: weakness. Denies: fever, chills Eyes: Denies: vision change Respiratory: Denies: cough, dyspnea, wheezes Cardiovascular: Reports: as per HPI, chest pain, syncope. Denies: palpitations, orthopnea, edema Gastrointestinal: Denies: abdominal pain, nausea, vomiting, diarrhea Genitourinary: Denies: dysuria, hematuria Musculoskeletal: Denies: back pain Skin: Denies: rash Neurological: Denies: headache, weakness, numbness Past Medical History Past Medical History: Cancer, Myocardial Infarction ([place]) Additional Past Medical History / Comment(s): Kidney CA right side, insomnia History of Any Multi-Drug Resistant Organisms: None Reported Past Surgical History: Tonsillectomy Additional Past Surgical History / Comment(s): right kidney removed. Past Anesthesia/Blood Transfusion Reactions: No Reported Reaction Past Psychological History: Anxiety, Depression, PTSD Smoking Status: Never smoker Past Alcohol Use History: Occasional Past Drug Use History: None Reported - Past Family History Father Family Medical History: No Reported History Mother Family Medical History: No Reported History General Exam General appearance: alert, in no apparent distress Head exam: Present: atraumatic, normocephalic Eye exam: Present: normal appearance. Absent: scleral icterus, conjunctival injection Neck exam: Present: normal inspection Respiratory exam: Present: normal lung sounds bilaterally. Absent: respiratory distress, wheezes, rales, rhonchi, stridor, accessory muscle use Cardiovascular Exam: Present: normal rhythm, tachycardia, normal heart sounds. Absent: systolic murmur, diastolic murmur, rubs, gallop GI/Abdominal exam: Present: soft. Absent: distended, tenderness, guarding, rebound, rigid, mass Extremities exam: Present: normal inspection, normal capillary refill. Absent: pedal edema, calf tenderness Back exam: Present: normal inspection. Absent: CVA tenderness (R), CVA tenderness (L) Neurological exam: Present: alert Skin exam: Present: warm, dry, intact, normal color. Absent: rash Course Vital Signs 12/22/23 12/22/23 18:04 20:10 Temperature 98.6 F Pulse Rate 116 H 78 Respiratory 22 18 Rate Blood Pressure 115/72 115/80 O2 Sat by Pulse 96 96 Oximetry EKG Findings - EKG Comments: EKG Findings:: Possible old anterior [place] - EKG Results: EKG: interpreted by KOBI, sinus rhythm, normal axis EKG shows: tachycardia (Rate 110 bpm) Medical Decision Making - Medical Decision Making Patient is a 28-year-old man here after syncopal episode after working outside. On the initial exam and from the labs there does appear to be evidence of some hypovolemia. I did spent a fair amount of time reviewing the patient's past records. On September 20 he did have an episode in which she had minimally elevated troponins. The patient had cardiology evaluation including an echocardiogram that was read as normal, and a heart catheterization that revealed no obstructions. I did not find a clear diagnosis of [place] related to that visit. The patient is feeling well following some fluid and would like to go home. He is encouraged to follow-up with cardiology. There is also note that they would like the patient to have tilt table test as apparently he has had previous syncopal episodes. All questions answered Was pt. sent in by a medical professional or institution (, PA, GENERAL ASSISTANT, urgent care, hospital, or half-way...) When possible be specific @ -[No] Did you speak to anyone other than the patient for history (EMS, parent, family, police, friend...)? What history was obtained from this source @ -[Patient's contributed to history Did you review nursing and triage notes (agree or disagree)? Why? @ -[I reviewed and agree with nursing and triage notes] Were old charts reviewed (outside hosp., previous admission, EMS record, old EKG, old radiological studies, urgent care reports/EKG's, half-way records)? Report findings @ -[Yes old charts were reviewed see above Differential Diagnosis (chest pain, altered mental status, abdominal pain women, abdominal pain men, vaginal bleeding, weakness, fever, dyspnea, syncope, headache, dizziness, GI bleed, back pain, seizure, CVA, palpatations, mental health, musculoskeletal)? @ -[Differential Syncope: Valvular disease, hypertrophic cardiomyopathy, pulmonary embolism, tamponade, tachycardia, bradycardia, [place], hypovolemia, hemorrhage, dissection, anemia, intracranial hemorrhage, seizure, hypoglycemia, carbon monoxide poisoning, this is not meant to be an all-inclusive list. EKG interpreted by me (3pts min.). @ -[I interpreted as above] X-rays interpreted by me (1pt min.). @ -[None done] CT interpreted by me (1pt min.). @ -[None done] U/S interpreted by me (1pt. min.). @ -[None done] What testing was considered but not performed or refused? (CT, X-rays, U/S, labs)? Why? @ -[None] What meds were considered but not given or refused? Why? @ -[None] Did you discuss the management of the patient with other professionals (lyric torres i.e. , PA, GENERAL ASSISTANT, lab, RT, psych nurse, social science manager, shear operator helper, teacher, eeo officer, logistics center manager)? Give summary @ -[No] Was smoking cessation discussed for >3mins.? @ -[No] Was critical care preformed (if so, how long)? @ -[No] Were there social determinants of health that impacted care today? How? (Homelessness, low income, unemployed, alcoholism, drug addiction, transportation, low edu. Level, literacy, decrease access to med. care, skilled nursing, rehab)? @ -[No] Was there de-escalation of care discussed even if they declined (Discuss DNR or withdrawal of care, Hospice)? DNR status @ -[No] What co-morbidities impacted this encounter? (DM, HTN, Smoking, COPD, CAD, Cancer, CVA, ARF, Chemo, Hep., AIDS, mental health diagnosis, sleep apnea, morbid obesity)? @ -[None] Was patient admitted / discharged? Hospital course, mention meds given and route, prescriptions, significant lab abnormalities, going to OR and other pertinent info. @ -[See above Undiagnosed new problem with uncertain prognosis? @ -[No] Drug Therapy requiring intensive monitoring for toxicity (Heparin, Nitro, Insulin, Cardizem)? @ -[No] Were any procedures done? @ -[No] Diagnosis/symptom? @ -[Acute syncopal episode Acute, or Chronic, or Acute on Chronic? @ -Acute Uncomplicated (without systemic symptoms) or Complicated (systemic symptoms)? @ -[Uncomplicated Side effects of treatment? @ -[No] Exacerbation, Progression, or Severe Exacerbation? @ -[No] Poses a threat to life or bodily function? How? (Chest pain, [place], [place], pneumonia, PE, COPD, DKA, ARF, appy, cholecystitis, CVA, Diverticulitis, Homicidal, Suicidal, threat to staff... and all critical care pts) @ -[No] - Lab Data Result diagrams: 12/22/23 18:30 12/22/23 18:30 Lab Results 12/22/23 12/22/23 12/22/23 Range/Units 18:30 18:30 18:30 WBC 12.0 H (3.8-10.6) k/uL RBC 5.25 (4.30-5.90) m/uL Hgb 15.5 (13.0-17.5) gm/dL Hct 44.5 (39.0-53.0) % MCV 84.8 (80.0-100.0) fL MCH 29.5 (25.0-35.0) pg MCHC 34.8 (31.0-37.0) g/dL RDW 13.4 (11.5-15.5) % Plt Count 194 (150-450) k/uL MPV 8.1 Neutrophils % 74 % Lymphocytes % 16 % Monocytes % 5 % Eosinophils % 3 % Basophils % 0 % Neutrophils # 8.9 H (1.3-7.7) k/uL Lymphocytes # 1.9 (1.0-4.8) k/uL Monocytes # 0.6 (0-1.0) k/uL Eosinophils # 0.3 (0-0.7) k/uL Basophils # 0.0 (0-0.2) k/uL Sodium 141 (137-145) mmol/L Potassium 3.7 (3.5-5.1) mmol/L Chloride 110 H (98-107) mmol/L Carbon Dioxide 23 (22-30) mmol/L Anion Gap 8 mmol/L BUN 12 (9-20) mg/dL Creatinine 1.25 (0.66-1.25) mg/dL Est GFR (CKD-EPI)AfAm >90 (>60 ml/min/1.73 sqM) Est GFR (CKD-EPI)NonAf 78 (>60 ml/min/1.73 sqM) Glucose 78 (74-99) mg/dL Calcium 9.4 (8.4-10.2) mg/dL Magnesium 1.5 L (1.6-2.3) mg/dL Total Bilirubin 0.9 (0.2-1.3) mg/dL AST 23 (17-59) U/L ALT 19 (4-49) U/L Alkaline Phosphatase 66 (38-126) U/L Troponin I <0.012 (0.000-0.034) ng/mL Total Protein 6.6 (6.3-8.2) g/dL Albumin 4.4 (3.5-5.0) g/dL Disposition Clinical Impression: Syncope Disposition: HOME SELF-CARE Condition: Good Instructions (If sedation given, give patient instructions): Syncope (ED) Prescriptions: Magnesium Oxide [Mag-Ox] 400 mg PO DAILY #14 tablet Is patient prescribed a controlled substance at d/c from ED?: No Referrals: None,Stated [REFERRING] - 1-2 days Patrice Eastman MD [STAFF PHYSICIAN] - 1-2 days Ronn Pickens MD [REFERRING] - 1-2 days
[2023-12-22 18:22] VITALS: TEMP 98.6
[2023-12-22] MEDS: SODIUM CHLORIDE 0.9% 1,000 ML IV ONE (18:49)
[2023-12-22 19:05] LABS: ALT 19 U/L (4-49); AST 23 U/L (17-59); African American GFR (CKD) >90 (>60 ml/min/1.73 sqM); Albumin 4.4 g/dL (3.5-5.0); Alkaline Phosphatase 66 U/L (38-126); Anion Gap 8 mmol/L; Blood Urea Nitrogen 12 mg/dL (9-20); Calcium 9.4 mg/dL (8.4-10.2); Carbon Dioxide 23 mmol/L (22-30); Chloride 110 mmol/L (98-107); Glucose 78 mg/dL (74-99); Magnesium 1.5 mg/dL (1.6-2.3); Non-African American GFR(CKD) 78 (>60 ml/min/1.73 sqM); Potassium 3.7 mmol/L (3.5-5.1); Sodium 141 mmol/L (137-145); Total Bilirubin 0.9 mg/dL (0.2-1.3); Total Protein 6.6 g/dL (6.3-8.2)
[2023-12-22 19:15] LABS: Basophils % (A) 0 %; Eosinophils # (A) 0.3 k/uL (0-0.7); Eosinophils % (A) 3 %; HCT 44.5 % (39.0-53.0); HGB 15.5 gm/dL (13.0-17.5); Lymphocytes # (A) 1.9 k/uL (1.0-4.8); Lymphocytes % (A) 16 %; MCH 29.5 pg (25.0-35.0); MCHC 34.8 g/dL (31.0-37.0); MCV 84.8 fL (80.0-100.0); Mean Platelet Volume 8.1; Monocytes # (A) 0.6 k/uL (0-1.0); Monocytes % (A) 5 %; Neutrophils # (A) 8.9 k/uL (1.3-7.7); Neutrophils % (A) 74 %; Platelet Count 194 k/uL (150-450); RBC 5.25 m/uL (4.30-5.90); RDW 13.4 % (11.5-15.5)
[2023-12-22] MEDS: MAGNESIUM OXIDE 400 MG TAB PO STA (19:55)
[2023-12-22 20:13] VITALS: BP 115/80; PULSE 78; RESP 18
== END 2023-12-22 20:10 | disposition home or self-care (01) ==
LOC: EC 17:47
DX: R55 Syncope and collapse (principal); R00.0 Tachycardia, unspecified; Z88.1 Allergy status to other antibiotic agents; Z88.0 Allergy status to penicillin
CPT/HCPCS: 36415; 80053; 83735; 84484; 85025; 93005; 96360; 99285

== ENCOUNTER → 2023-12-31 | Day surgery (SDC) | payer OTHER ==
[2023-12-31] MEDS: SODIUM CHLORIDE 0.9% 1,000 ML IV SCH (09:20)
[2023-12-31 09:24] VITALS: TEMP 97.7
[2023-12-31 11:13] VITALS: BP 115/64; PULSE 77; RESP 16
--- NOTE | 2023-12-31 18:07 | P.EPPROC ---
- EP Procedure Note Electrophysiology Procedure Note: Diagnosis Recurrent syncope Twelve-lead EKG shows sinus rhythm will be repolarization abnormality, normal variant Tilt table test Baseline blood pressure 123/63 mmHg baseline heart rate 78 beats a minute Patient was tilted upright from angle of 70 degrees per protocol There was an immediate increase in heart rate which remained sustained Blood pressure was normal He complained of being short of breath lightheaded, achiness in the chest When he was laid supine his heart rate still remained 120 beats a minute Impression Normal twelve-lead EKG Possible orthostatic intolerance
== END ==
LOC: CATHEP 08:51
PROVIDERS: ATTEND Internal Medicine Clinical Cardiac Electrophysiology
DX: R55 Syncope and collapse (principal); Z88.0 Allergy status to penicillin; Z88.1 Allergy status to other antibiotic agents; Z85.528 Personal history of other malignant neoplasm of kidney; E78.5 Hyperlipidemia, unspecified; Z79.82 Long term (current) use of aspirin; Z79.899 Other long term (current) drug therapy
CPT/HCPCS: 93660

== ENCOUNTER 2024-01-15 16:59 | Emergency (ER) | payer OTHER ==
[2024-01-15 17:26] VITALS: BP 120/72; PULSE 82; RESP 18; TEMP 97.3
--- NOTE | 2024-01-15 17:31 | ED ---
Recheck HPI - General Chief Complaint: Recheck/Abnormal Lab/Rx Stated Complaint: Mental health, withdrawals Time Seen by Provider: 01/15/24 17:12 Source: patient, RN notes reviewed Mode of arrival: ambulatory Limitations: no limitations - History of Present Illness Initial Comments: This is a 28-year-old male presents emergency department chief complaint of a medication refill. Patient states that he has prescribed venlafaxine 75 mg extended release that he takes 1 time a day 3 tablets. He is prescribed this medication by the [place] states that he will not receive his refill until Thursday. He has not taken any of this medication in approximately 24 hours. States that he is starting to feel anxious and experience withdrawal symptoms. Patient has been on this medication for a few years and has been on this dose of the medication for the past couple of months. No other acute complaints at this time. - Related Data Home Medications Medication Instructions Recorded Confirmed Albuterol Sulfate [Albuterol 1 puff INHALATION RT-Q6H PRN 09/30/22 12/30/23 Sulfate Hfa] Montelukast [Singulair] 10 mg PO HS 09/18/23 12/31/23 Venlafaxine HCl ER [Effexor XR] 150 mg PO DAILY 09/18/23 12/31/23 traZODone HCL [Desyrel] 200 mg PO HS 09/18/23 12/31/23 Prazosin [Minipress] 1 mg PO HS 12/22/23 12/31/23 Fexofenadine HCl [Joselyn Allergy] 180 mg PO DAILY 12/30/23 12/31/23 Omeprazole 20 mg PO DAILY 12/30/23 12/31/23 Trellegy (Unk) 1 dose INHALATION DIRECTED 12/30/23 12/31/23 Previous Rx's Medication Instructions Recorded Nitroglycerin Sl Tabs [Nitrostat] 0.4 mg SUBLINGUAL Q5M PRN #30 tab 09/21/23 Magnesium Oxide [Mag-Ox] 400 mg PO DAILY #14 tablet 12/22/23 Venlafaxine HCl [Effexor XR] 75 mg PO DAILY 3 Days #9 cap 01/15/24 Allergies Allergy/AdvReac Type Severity Reaction Status Date / Time cephalexin [From Keflex] Allergy Anaphylaxis Verified 01/15/24 17:26 Penicillins Allergy Anaphylaxis Verified 01/15/24 17:26 Review of Systems ROS Statement: Those systems with pertinent positive or pertinent negative responses have been documented in the HPI. ROS Other: All systems not noted in ROS Statement are negative. Past Medical History Past Medical History: Cancer, Myocardial Infarction (ME) Additional Past Medical History / Comment(s): Kidney CA right side, insomnia Last Myocardial Infarction Date:: 09/18/2023 History of Any Multi-Drug Resistant Organisms: None Reported Past Surgical History: Heart Catheterization, Tonsillectomy Additional Past Surgical History / Comment(s): right kidney removed. Past Anesthesia/Blood Transfusion Reactions: No Reported Reaction Past Psychological History: Anxiety, Depression, PTSD Smoking Status: Never smoker Past Alcohol Use History: Occasional Past Drug Use History: None Reported - Past Family History Father Family Medical History: No Reported History Mother Family Medical History: No Reported History General Exam Limitations: no limitations General appearance: alert, in no apparent distress Head exam: Present: atraumatic, normocephalic, normal inspection Eye exam: Present: normal appearance, PERRL, EOMI. Absent: scleral icterus, conjunctival injection, periorbital swelling ENT exam: Present: normal exam, mucous membranes moist Neck exam: Present: normal inspection. Absent: tenderness, meningismus, lymphadenopathy Respiratory exam: Present: normal lung sounds bilaterally. Absent: respiratory distress, wheezes, rales, rhonchi, stridor Cardiovascular Exam: Present: regular rate, normal rhythm, normal heart sounds. Absent: systolic murmur, diastolic murmur, rubs, gallop, clicks GI/Abdominal exam: Present: soft, normal bowel sounds. Absent: distended, tenderness, guarding, rebound, rigid Extremities exam: Present: normal inspection, full ROM, normal capillary refill. Absent: tenderness, pedal edema, joint swelling, calf tenderness Back exam: Present: normal inspection Neurological exam: Present: alert, oriented X3, CN II-XII intact Psychiatric exam: Present: normal affect, normal mood Skin exam: Present: warm, dry, intact, normal color. Absent: rash Course Vital Signs 01/15/24 17:20 Temperature 97.3 F L Pulse Rate 82 Respiratory 18 Rate Blood Pressure 120/72 O2 Sat by Pulse 94 L Oximetry Medical Decision Making - Medical Decision Making Was pt. sent in by a medical professional or institution (, PA, FOOD STAND MANAGER, urgent care, hospital, or half-way...) When possible be specific @ -No Did you speak to anyone other than the patient for history (EMS, parent, family, police, friend...)? What history was obtained from this source @ -No Did you review nursing and triage notes (agree or disagree)? Why? @ -I reviewed and agree with nursing and triage notes Were old charts reviewed (outside hosp., previous admission, EMS record, old EKG, old radiological studies, urgent care reports/EKG's, half-way records)? Report findings @ -No old charts were reviewed Differential Diagnosis (chest pain, altered mental status, abdominal pain women, abdominal pain men, vaginal bleeding, weakness, fever, dyspnea, syncope, headache, dizziness, GI bleed, back pain, seizure, CVA, palpatations, mental health, musculoskeletal)? @ -medication refill EKG interpreted by me (3pts min.). @ -None X-rays interpreted by me (1pt min.). @ -None done CT interpreted by me (1pt min.). @ -None done U/S interpreted by me (1pt. min.). @ -None done What testing was considered but not performed or refused? (CT, X-rays, U/S, labs)? Why? @ -None What meds were considered but not given or refused? Why? @ -None Did you discuss the management of the patient with other professionals (professionals i.e. , PA, FOOD STAND MANAGER, lab, RT, psych nurse, drug abuse social worker, watcher [employer], teacher, chairman & chief executive officer, case picker)? Give summary @ -No Was smoking cessation discussed for >3mins.? @ -No Was critical care preformed (if so, how long)? @ -No Were there social determinants of health that impacted care today? How? (Homelessness, low income, unemployed, alcoholism, drug addiction, transportation, low edu. Level, literacy, decrease access to med. care, penitentiary, rehab)? @ -No Was there de-escalation of care discussed even if they declined (Discuss DNR or withdrawal of care, Hospice)? DNR status @ -No What co-morbidities impacted this encounter? (DM, HTN, Smoking, COPD, CAD, Cancer, CVA, ARF, Chemo, Hep., AIDS, mental health diagnosis, sleep apnea, morbid obesity)? @ -None Was patient admitted / discharged? Hospital course, mention meds given and route, prescriptions, significant lab abnormalities, going to OR and other pertinent info. @ -Discharged. 28-year-old male, for medication refill. There are no acute findings on physical examination. Patient was provided with dose of Effexor in the emergency room and sent a couple day prescription until he is able to receive his medication. Undiagnosed new problem with uncertain prognosis? @ -No Drug Therapy requiring intensive monitoring for toxicity (Heparin, Nitro, Insulin, Cardizem)? @ -No Were any procedures done? @ -No Diagnosis/symptom? @ -encounter for refill of medication Acute, or Chronic, or Acute on Chronic? @ -acute Uncomplicated (without systemic symptoms) or Complicated (systemic symptoms)? @ -uncomplicated Side effects of treatment? @ -No Exacerbation, Progression, or Severe Exacerbation? @ -No Poses a threat to life or bodily function? How? (Chest pain, [place], ME, pneumonia, PE, COPD, DKA, ARF, appy, cholecystitis, CVA, Diverticulitis, Homicidal, Suicidal, threat to staff... and all critical care pts) @ -No Disposition Clinical Impression: Encounter for medication refill Disposition: HOME SELF-CARE Condition: Good Instructions (If sedation given, give patient instructions): Venlafaxine (By mouth) Additional Instructions: Return to the emergency department if symptoms worsen or not improved. Prescriptions: Venlafaxine HCl [Effexor XR] 75 mg PO DAILY 3 Days #9 cap Is patient prescribed a controlled substance at d/c from ED?: No Referrals: Kenny Winn MD [Primary Care Provider] - 1-2 days Time of Disposition: 17:38
[2024-01-15] MEDS: VENLAFAXINE HCL ER 75 MG CAP PO STA (17:44)
== END 2024-01-15 17:49 | disposition home or self-care (01) ==
LOC: EC 16:59
DX: Z76.0 Encounter for issue of repeat prescription (principal); Z88.1 Allergy status to other antibiotic agents; Z88.0 Allergy status to penicillin
CPT/HCPCS: 99283